=== PATIENT | male | born 1950 | race Caucasian/White ===

== ENCOUNTER 2018-07-23 12:10 | Inpatient (IN) | payer OTHER, MEDICARE ==
[~2018-07-23] VITALS: Ht 167.6 cm; Wt 79.8 kg
[~2018-07-23 12:10] MED LIST: BENA10TA9 PO; GLIM4TAB3 PO; MECL-102 PO; METF-442 PO; METR-147 PO; OMEP20CA10 PO; ONDA4TAB8 PO
[2018-07-23] MEDS ORDERED: MORPHINE SULFATE 2 MG/1 ML DISP.SYRIN IV ONE (12:30)
[2018-07-23] MEDS ORDERED: ONDANSETRON 4 MG/2 ML VIAL IV ONE (12:30)
[2018-07-23] MEDS ORDERED: IV NORMAL SALINE 1000 ML BAG IV ONE (12:30)
[2018-07-23] MEDS ORDERED: MORPHINE SULFATE 4 MG/1 ML DISP.SYRIN ONE (12:34)
[2018-07-23] MEDS ORDERED: ONDANSETRON 4 MG/2 ML VIAL ONE (12:34)
[2018-07-23 12:41] LABS: BASOPHILS % (AUTO) 0.5 % (0.0-2.0); EOSINOPHILS % (AUTO) 0.4 % (0.0-7.0); HEMATOCRIT 39.8 % (36.7-47.1); LYMPHOCYTES # (AUTO) 0.7 K/uL (20.0-40.0); LYMPHOCYTES % (AUTO) 7.7 % (20.5-51.5); MEAN CORPUSCULAR HEMOGLOBIN 31.2 uug (23.8-33.4); MEAN CORPUSCULAR HGB CONC 35 g/dL (32.5-36.3); MEAN CORPUSCULAR VOLUME 88.8 fL (73.0-96.2); MONOCYTES # (AUTO) 0.8 K/uL (2.0-10.0); MONOCYTES % (AUTO) 9.2 % (0.0-11.0); NEUTROPHILS # (AUTO) 7.4 K/uL (1.8-8.9); NEUTROPHILS % (AUTO) 82.2 % (38.5-71.5); PLATELET COUNT (AUTO) 237 K/uL (152-348); RED BLOOD CELL COUNT(AUTO) 4.49 MIL/uL (4.06-5.63); WHITE BLOOD COUNT (AUTO) 9.1 K/uL (3.6-10.2)
[2018-07-23 12:51] LABS: BILIRUBIN,DIRECT 0.2 mg/dL (0.0-0.2); BILIRUBIN,TOTAL 0.9 mg/dL (0.2-1.0); CREATININE 1.1 mg/dL (0.6-1.3); POTASSIUM 3.8 mmol/L (3.5-5.1); TOTAL PROTEIN, SERUM 7.4 g/dL (6.4-8.2)
[2018-07-23] MEDS ORDERED: METOCLOPRAMIDE HCL 10 MG/2 ML VIAL ONE (13:06)
[2018-07-23] MEDS ORDERED: CEPH500C2 PO (13:08)
[2018-07-23] MEDS ORDERED: LANS30CA54 PO (13:08)
[2018-07-23] MEDS ORDERED: METOCLOPRAMIDE HCL 10 MG/2 ML VIAL IV ONE (13:15)
--- NOTE | 2018-07-23 14:25 | NUR ---
PT TRANSFERED TO FLOOR IN STABLE CONDITION. PT REMAINED CALM AND COMFORTABE AFTER REGLAN WAS GIVEN.
--- NOTE | 2018-07-23 14:46 | NUR ---
Patient was admitted to the Med/surg from ED. Patient is alert and oriented x4, cooperative, follows command. Patient reports epigastric pain, pain in the back, denies nausea at the moment. patient denies smoking or alcohol use. Reports diabetes managed by oral meds. Patient appears drowsy and not in distress. Family is not present.
--- NOTE | 2018-07-23 14:56 | NUR ---
Dr Marquez was paged for admitting orders. Waiting for response.
[2018-07-23 15:00] VITALS: BP 224/93
--- NOTE | 2018-07-23 15:06 | NUR ---
RECREATION THERAPIST reported BP 224/94, patient reports abdominal pain 5/10. Dr Marquez was notified.
[2018-07-23 15:17] VITALS: BP 210/87
[2018-07-23] MEDS ORDERED: ONDANSETRON 4 MG/2 ML VIAL IV PRN (16:00)
[2018-07-23] MEDS ORDERED: ACETAMINOPHEN 650 MG SUPP.RECT RC PRN (16:00)
[2018-07-23] MEDS ORDERED: ENALAPRILAT DIHYDRATE 1.25 MG/1 ML VIAL IV PRN (16:00)
[2018-07-23] MEDS: NITROGLYCERIN OINT 1 GM PACKET TP PRN (16:55)
[2018-07-23] MEDS: HYDROMORPHONE 1 MG/1 ML DISP.SYRIN IV PRN (16:56)
[2018-07-23] MEDS: IV D5 1/2 NS 1000 ML 1,000 ML IV PRN (17:04)
[2018-07-23 18:17] VITALS: BP 106/64
--- NOTE | 2018-07-23 18:18 | NUR ---
Patient was placed on paper grader per Dr Marquez order d/t Hypertension at 1730. Dr Marquez saw the patient at 1800. BP was rechecked and is now WNL. patient is calm and comfortable, denies pain or nausea.
[2018-07-23 18:55] LABS: *BILIRUBIN,URIN NEGATIVE (NEGATIVE); *BLOOD, URINE NEGATIVE (NEGATIVE); *CLARITY,URINE CLEAR (CLEAR); *COLOR,URINE YELLOW (YELLOW); *KETONES,URINE 2+ (NEGATIVE); *UROBILINOGEN,URINE 0.2 E.U./dl (NORMAL); LEUKOCYTE ESTERASE ,URINE NEGATIVE (NEGATIVE); NITRITE, URINE NEGATIVE (NEGATIVE); UGLUCOSE 2+ (NEGATIVE)
[2018-07-23] MEDS ORDERED: DEXTROSE 50% 50 ML DISP.SYRIN IV PRN (19:00)
[2018-07-23 19:06] LABS: MUCUS,URINE FEW /LPF (0-FEW); WBC,URINE 0-3 /HPF (0-3)
--- NOTE | 2018-07-23 19:25 | NUR ---
RECEIVED PT AWAKE, ALERT AND ORIENTEDX4. PT SHOWS NO SIGNS OF ACUTE DISTRESS. IV INTACT. CALL LIGHT WITHIN REACH. BED ALARM ON. SAFETY AND COMFORT PROVIDED. WILL CONTINUE TO MONITOR.
[2018-07-23 20:06] VITALS: BP 126/68
[2018-07-23] MEDS: BLOOD SUGAR DIAGNOSTIC 1 EACH STRIP VI SCH (20:47)
[2018-07-23] MEDS: INSULIN REGULAR, HUMAN 300 UNIT/3 ML VIAL SQ PRN (20:50)
[2018-07-24] VITALS (7 sets, daily range): BP systolic 122–178; BP diastolic 62–83
[2018-07-24] MEDS: BLOOD SUGAR DIAGNOSTIC 1 EACH STRIP VI SCH ×5 (00:07→22:00)
--- NOTE | 2018-07-24 05:51 | NUR ---
PT SLEPT THROUGHOUT THE SHIFT. PT SHOWS NO SIGNS OF ACUTE DISTRESS. IV INTACT. SAFETY AND COMFORT PROVIDED. PRESCRIBED MEDICATION GIVEN AND PT TOLERATED IT WELL.WILL ENDORSE ACCORDINGLY TO INCOMING NURSE FOR CONTINUITY OF CARE.
[2018-07-24 06:32] LABS: BASOPHILS # (AUTO) 0.1 K/uL (0.0-8.0); BASOPHILS % (AUTO) 0.6 % (0.0-2.0); EOSINOPHILS # (AUTO) 0.2 K/uL (0.0-0.7); EOSINOPHILS % (AUTO) 2.3 % (0.0-7.0); HEMATOCRIT 33.8 % (36.7-47.1); LYMPHOCYTES # (AUTO) 1.5 K/uL (20.0-40.0); MEAN CORPUSCULAR HEMOGLOBIN 31.8 uug (23.8-33.4); MEAN CORPUSCULAR HGB CONC 36 g/dL (32.5-36.3); MEAN CORPUSCULAR VOLUME 89.4 fL (73.0-96.2); MONOCYTES % (AUTO) 12.8 % (0.0-11.0); NEUTROPHILS # (AUTO) 5.2 K/uL (1.8-8.9); NEUTROPHILS % (AUTO) 65.3 % (38.5-71.5); PLATELET COUNT (AUTO) 198 K/uL (152-348); RED BLOOD CELL COUNT(AUTO) 3.78 MIL/uL (4.06-5.63); WHITE BLOOD COUNT (AUTO) 7.9 K/uL (3.6-10.2)
[2018-07-24 06:49] LABS: BILIRUBIN,DIRECT 0.2 mg/dL (0.0-0.2); BILIRUBIN,TOTAL 0.6 mg/dL (0.2-1.0); MAGNESIUM 1.8 mg/dL (1.8-2.4); PHOSPHOROUS 3.7 mg/dL (2.5-4.9); POTASSIUM 3.8 mmol/L (3.5-5.1); TOTAL PROTEIN, SERUM 6.1 g/dL (6.4-8.2)
[2018-07-24 06:57] LABS: THYROID STIMULATING HORMONE 1.293 mIU/mL (0.358-3.740)
[2018-07-24] MEDS: IV D5 1/2 NS 1000 ML 1,000 ML IV PRN ×2 (08:04→23:37)
[2018-07-24] MEDS: PANTOPRAZOLE SODIUM 40 MG VIAL IV SCH (08:04)
[2018-07-24] MEDS: INSULIN REGULAR, HUMAN 300 UNIT/3 ML VIAL SQ PRN ×4 (08:10→22:07)
[2018-07-24] MEDS: NITROGLYCERIN OINT 1 GM PACKET TP PRN (15:46)
[2018-07-24] MEDS ORDERED: DEXTROSE 50% 50 ML DISP.SYRIN IV PRN (18:30)
[2018-07-24] MEDS: HYDROMORPHONE 1 MG/1 ML DISP.SYRIN IV PRN ×2 (20:03→23:56)
--- NOTE | 2018-07-24 23:00 | NUR ---
RECEIVED REPORT FROM RENITA MILTON; PATIENT IS A 68 Y/O MALE ADMITTED FROM HOME FOR ABD PAIN; PATIENT HAS HISTORY OF ETOH ABUSE BUT DENIES ETOH CONSUMPTION SINCE 2013; S/P LAP CHOLECYSTECTOMY; HX OF DIVERTCULOSIS, HTN, GERD; AND ACUTE PANCREATITIS; PATIENT IS FULL CODE AND AO X4, ABLE TO AMBULATE WITHOUT ASSIST; KISHORE CURRENTLY HAS A PIV, WHICH IS PATENT AND INTACT, LOCATED ON THE LEFT ANTECUBITAL AREA WITH D5 1/2 NS RUNNING @ 80 mL/HR.
[2018-07-25 04:46] VITALS: BP 125/56
[2018-07-25] MEDS: HYDROMORPHONE 1 MG/1 ML DISP.SYRIN IV PRN (04:47)
--- NOTE | 2018-07-25 05:00 | NUR ---
PATIENT SLEPT MOSTLY THROUGHOUT SHIFT. COMPLAINTS OF PAIN WERE RELIEVED WITH PRESCRIBED MEDICATION AND WITHIN PARAMETERS OF PRESCRIPTION. PATIENT NEEDS MET PROMPTLY. ROOM KEPT CLEAN AND FREE OF CLUTTER. CALL LIGHT WITHIN REACH AT ALL TIMES.
[2018-07-25 06:00] VITALS: BP 125/56
[2018-07-25] MEDS: BLOOD SUGAR DIAGNOSTIC 1 EACH STRIP VI SCH ×2 (06:35→11:54)
--- NOTE | 2018-07-25 07:00 | NUR ---
PATIENT IS AO 3, NO DISTRESS, RESTING IN BED, NO PAIN OR NAUSEA REPORTED SAFETY REINFORCED
[2018-07-25] MEDS: INSULIN REGULAR, HUMAN 300 UNIT/3 ML VIAL SQ PRN ×2 (08:19→11:57)
[2018-07-25] MEDS: PANTOPRAZOLE SODIUM 40 MG VIAL IV SCH (08:23)
[2018-07-25 11:01] VITALS: BP 153/79
[2018-07-25] MEDS: IV D5 1/2 NS 1000 ML 1,000 ML IV PRN (13:24)
[2018-07-25] MEDS ORDERED: SUCR1TAB PO (14:29)
[2018-07-25] MEDS ORDERED: OMEP20CA10 PO (14:29)
[2018-07-25 15:08] VITALS: BP 148/55
--- NOTE | 2018-07-25 15:30 | NUR ---
PATIENT IS DISCHARGED FULL LIQUID DIET TOLERATED WELL, NO NAUSEA OR VOMITING OR PAIN REPORTED, ORDERS CARED OUT TEACHING IS DONE, DISCHARGE PAPERS SIGNED AND SENT WITH PATIENT COPY SAFETY MAINTAINED THIS SHIFT PATIENT IS GOING HOME WITH
== END 2018-07-25 16:06 | disposition home or self-care (01) | DRG 391 ==
LOC: ER 12:10 → MEDSURG3 14:10 → TELE3 17:03 → MEDSURG3 07-24 14:41
PROVIDERS: ADMIT Internal Medicine; ATTEND Internal Medicine
DX: K21.9 Gastro-esophageal reflux disease without esophagitis (principal); K85.90 Acute pancreatitis without necrosis or infection, unspecified; E87.1 Hypo-osmolality and hyponatremia; K29.70 Gastritis, unspecified, without bleeding; K57.30 Diverticulosis of large intestine without perforation or abscess without bleeding; Z90.49 Acquired absence of other specified parts of digestive tract; E11.65 Type 2 diabetes mellitus with hyperglycemia; Z79.84 Long term (current) use of oral hypoglycemic drugs; I70.0 Atherosclerosis of aorta; Z82.49 Family history of ischemic heart disease and other diseases of the circulatory system; Z82.5 Family history of asthma and other chronic lower respiratory diseases; E78.5 Hyperlipidemia, unspecified; R11.0 Nausea; I15.8 Other secondary hypertension; F10.11 Alcohol abuse, in remission; Y90.9 Presence of alcohol in blood, level not specified
CPT/HCPCS: 36415; 70030-TC; 71045; 76700; 83690; 83735; 84100; 84443; 85025; 93005; A4663; C9113; G0378; J1170; J1815; J2270; J2405; J2765; J3490; J7030